=== PATIENT | male | born 1945 | race Caucasian/White ===

== ENCOUNTER 2016-12-28 13:44 | Emergency (ER) | payer MEDICARE, OTHER ==
[2016-12-28 13:55] VITALS: BP 145/89
[2016-12-28] MEDS ORDERED: SILVER SULFADIAZINE 50 APPL JAR TP ONE ×3 (14:11→14:19)
[2016-12-28] MEDS ORDERED: DIPHTH,PERTUSS(ACELL),TET VAC 0.5 ML VIAL IM ONE ×2 (14:11→14:12)
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
== END 2016-12-28 14:25 | disposition home or self-care (01) ==
LOC: ER 13:44
PROC: 2W2CX4Z Dressing of Right Lower Arm using Bandage (ICD-10-PCS; principal; 2016-12-28)
DX: T22.211A Burn of second degree of right forearm, initial encounter (principal); T31.0 Burns involving less than 10% of body surface; X08.8XXA Exposure to other specified smoke, fire and flames, initial encounter; Y93.9 Activity, unspecified; Y92.007 Garden or yard of unspecified non-institutional (private) residence as the place of occurrence of the external cause; Z23 Encounter for immunization